=== PATIENT | female | born 2000 | race Caucasian/White ===

== ENCOUNTER 2018-12-06 17:27 | Emergency (ER) | payer MEDICAID ==
[~2018-12-06] VITALS: Ht 160 cm; Wt 60.7 kg
[~2018-12-06 17:27] MED LIST: IBUP-1561 PO; ONDA4TAB14 PO; ONDA4TAB8 PO; SERT25TA PO
[2018-12-06 17:33] VITALS: Ht 160 cm; Wt 60.7 kg
[2018-12-06] MEDS ORDERED: ONDANSETRON (ODT) 4 MG TAB ODT STA (18:33)
[2018-12-06] MEDS ORDERED: LORAZEPAM 0.5 MG TAB PO ONE (19:00)
--- NOTE | 2018-12-06 19:50 | ERD ---
ER Documentation Chief Complaint Chief Complaint FEELING OF FAINTING X 3 DAYS; WALKED IN; EATING BENGALI FRIES NOW ROS All systems reviewed and are negative except as per history of present illness. Medications Home Meds Active Scripts Ondansetron (Ondansetron Odt) 4 Mg Tab.rapdis, 4 MG PO Q6H PRN for NAUSEA AND/OR VOMITING, #15 TAB Prov:THANH DARNELL DO 12/06/18 Sertraline Hcl* (Zoloft*) 25 Mg Tablet, 25 MG PO DAILY for depression, #30 TAB Prov:THANH DARNELL DO 12/06/18 Ibuprofen* (Motrin*) 400 Mg Tab, 400 MG PO Q6 PRN for HEADACHE, #10 TAB Prov:ANEL HUTCHISON PA-C 08/16/15 Ondansetron Hcl* (Zofran*) 4 Mg Tablet, 4 MG PO Q6H PRN for NAUSEA, #10 TAB Prov:ANEL HUTCHISON PA-C 08/16/15 Allergies Allergies: Coded Allergies: No Known Allergy (Unverified , 08/16/15) PMhx/Soc Medical and Surgical Hx: pt denies Medical Hx, pt denies Surgical Hx Hx Alcohol Use: Yes Hx Substance Use: Yes (coccaine) Hx Tobacco Use: No Physical Exam Vitals Vital Signs Date Temp Pulse Resp B/P (MAP) Pulse Ox O2 O2 Flow FiO2 Time Delivery Rate 12/06/18 98.9 88 20 123/58 99 17:33 (79) Physical Exam Const: No acute distress Head: Atraumatic Eyes: Normal Conjunctiva ENT: Normal External Ears, Nose and Mouth. Neck: Full range of motion. No meningismus. Resp: Clear to auscultation bilaterally Cardio: Regular rate and rhythm, no murmurs Abd: Soft, non tender, non distended. Normal bowel sounds Skin: No petechiae or rashes Back: No midline or flank tenderness Ext: No cyanosis, or edema Neur: Awake and alert Psych: Normal Mood and Affect Results 24 hrs Current Medications Medications Dose Sig/[place] Start Time Status Last (Trade) Ordered Route PRN Stop Time Admin Dose Reason Admin Ondansetron 4 mg ONCE STAT 12/06/18 DC 12/06/18 HCl (Zofran ODT 18:33 18:45 Odt) 12/06/18 18:34 Lorazepam 0.5 mg ONCE ONCE 12/06/18 DC 12/06/18 (Ativan) PO 19:00 18:44 12/06/18 19:01 Departure Diagnosis: Primary Impression: Dizziness Condition: Fair Patient Instructions: Dizziness (Vertigo) and Balance Problems: Ensuring Your Safety Referrals: COMMUNITY CLINICS YOU HAVE RECEIVED A MEDICAL SCREENING EXAM AND THE RESULTS INDICATE THAT YOU DO NOT HAVE A CONDITION THAT REQUIRES URGENT TREATMENT IN THE EMERGENCY DEPARTMENT. FURTHER EVALUATION AND TREATMENT OF YOUR CONDITION CAN WAIT UNTIL YOU ARE SEEN IN YOUR DOCTORS OFFICE WITHIN THE NEXT 1-2 DAYS. IT IS YOUR RESPONSIBILITY TO MAKE AN APPOINTMENT FOR FOLOW-UP CARE. IF YOU HAVE A PRIMARY DOCTOR --you should call your primary doctor and schedule an appointment IF YOU DO NOT HAVE A PRIMARY DOCTOR YOU CAN CALL OUR PHYSICIAN REFERRAL HOTLINE AT IF YOU CAN NOT AFFORD TO SEE A PHYSICIAN YOU CAN CHOSE FROM THE FOLLOWING [facility] [address] [facility]. [facility] [address] [facility] [address] [facility] [facility] [address] [facility]. [facility] [address] [facility]. [facility]. [address] Additional Instructions: Call your primary care doctor TOMORROW for an appointment during the next 1-2 days.See the doctor sooner or return here if your condition worsens before your appointment time. THANH DARNELL DO Dec 06, 2018 19:50
[2018-12-06 19:56] VITALS: BP 111/71; PULSE 71; RESP 18
== END 2018-12-06 19:57 | disposition home or self-care (01) ==
LOC: FTE 17:27
DX: R42 Dizziness and giddiness (principal)
CPT/HCPCS: Z7502; Z7610; 99283